=== PATIENT | female | born 1955 | race Caucasian/White ===

== ENCOUNTER 2024-02-22 12:09 | Emergency (ER) | payer MEDICARE ==
--- OUTSIDE RECORDS SUMMARY | 2024-02-22 12:13 | XMS REPORT | Continuity of Care Document ---
Author Name Unknown Address [address] [facility]. [address] thconnect Address [address] [facility]. 1 [address] [place] [address] Care Team Providers Care Electron Tube Assembler Name Role Phone Kurt Alexis Attending Clinician Unavailable Pelon Chew Attending Clinician Unavailable Juan Figueroa Attending Clinician Chacha Diamond Attending Clinician [phone] Leeann Attending Clinician Unavailable Mireille Andres Attending Clinician [phone] Krystyna Nelson MD Attending Clinician [phone] Leeann Admitting Clinician Unavailable Payers Payer Name Policy Type Policy Number Effective Date Expirati on Date Source [facility] (MEDICARE REPLACEMENT O) [id number] 2022 00:00:00 Problems Condition Name Condition Details Condition Category Status Onset Date Resolution Date Last Treatment Date Treating Clinician Comments Source Obesity (BMI 30-39.9) Obesity (BMI 30-39.9) Disease Active 03-14 00:00: 00 [facility] Slurred speech Slurred speech Disease Active 03-13 00:00: 00 [facility] Allergies, Adverse Reactions, Alerts Allergy Name Allergy Type Status Severity Reaction(s) Onset Date Inactive Date Treating Clinician Comments Source Iodine And Iodide Containi ng Products Drug Allergy Active Rash 04-10 00:00: 00 [facility] Penicill in Propensi ty to adverse reaction s Active Rash 2016-09 00:00: 00 [facility] Social History Social Habit Start Date Stop Date Quantity Comments Source Sex Assigned At [facility] Tobacco Comment 2019-03-13 00:00:00 2019-03-13 00:00:00 quit in her 20's [facility] Smoking Status Start Date Stop Date Source Former smoker 2019-04-10 00:00:00 2019-04-10 00:00:00 [facility] Medications Ordered Medication Name Filled Medication Name Start Date Stop Date Current Medication? Ordering Clinician Indication Dosage Frequency Signature (SIG) Comments Components Source ketorolac (TORADOL) injection 30 mg 04-11 03:45: 00 04-11 02:45 :00 No 30mg 30 mg, Slow IV Push, ONCE, 1 dose, Sat04/10/19 at 2245, JUSTIN
Fa culty member approving Restricted medication : TYRON RÍOS [facility] gabapentin (NEURONTIN) capsule 300 mg 04-11 03:25: 00 04-11 03:45 :00 No 300mg 300 mg, Oral, ONCE, 1 dose, Sat04/10/19 at 2230, JUSTIN [facility] iohexol (OMNIPAQUE 350 BULK-150 mL) injection 120 mL 04-11 02:15: 00 04-11 01:55 :00 No 120mL 120 mL, Intravenou s, ONCE, 1 dose, Sat04/10/19 at 2115, Routine [facility] diphenhydrA MINE (BENADRYL) injection 25 mg 04-11 01:45: 00 04-11 00:34 :00 No 25mg 25 mg, Slow IV Push, ONCE, 1 dose, Sat04/10/19 at 2045, STAT [facility] ondansetron (ZOFRAN-ODT ) disintegrat ing tablet 4 mg 04-11 00:45: 00 04-11 00:34 :00 No 4mg 4 mg, Oral, ONCE, 1 dose, Sat04/10/19 at 1945, Routine [facility] NaCl 0.9% (NS) bolus infusion 1,000 mL 04-10 23:45: 00 04-11 02:16 :00 No 1000mL at 999 mL/hr, 1,000 mL, IV Infusion, ONCE, 1 dose, Sat04/10/19 at 1845, JUSTIN [facility] gabapentin 300 mg capsule 04-10 00:00: 00 Yes [id number] 300mg Take 1 capsule by mouth at bedtime. [facility] aspirin 81 mg chewable tablet 03-15 00:00: 00 Yes [id number] 81mg Take 1 tablet by mouth daily. [facility] metoprolol tartrate 50 mg tablet 03-14 21:18: 08 Yes 50mg Take 50 mg by mouth 2 (two) times daily. [facility] losartan 25 mg tablet 03-14 00:00: 00 Yes [id number] 25mg Take 1 tablet by mouth daily. [facility] atorvastati n 20 mg tablet 03-14 00:00: 00 Yes [id number] 20mg Take 1 tablet by mouth at bedtime. [facility] Vital Signs Vital Name Observation Time Observation Value Comments S oureris Systolic blood pressure 2019-04-11 02:32:00 175 mm[Hg] [facility] Diastolic blood pressure 2019-04-11 02:32:00 92 mm[Hg] [facility] Heart rate 2019-04-11 02:32:00 74 /min [facility] Respiratory rate 2019-04-11 02:32:00 20 /min [facility] Oxygen saturation in Arterial blood by Pulse oximetry 2019-04-11 02:32:00 98 /min [facility] Body temperature 2019-04-10 22:57:00 36.67 Lucretia [facility] Body weight 2019-04-10 22:57:00 108.863 kg [facility] BMI 2019-04-10 22:57:00 39.94 kg/m2 [facility] Procedures Procedure Date / Time Performed Performing Clinician Source CT ABDOMEN PELVIS W CONTRAST 2019-04-11 02:03:00 Krystyna Nelson [facility] LIPASE 2019-04-10 23:46:00 Krystyna Nelson [facility] HEPATIC FUNCTION PANEL ([id number]) (ALB,T.PRO,BILI T,BU/BC,ALT,AST,ALK PHOS) 2019-04-10 23:46:00 Krystyna Nelson [facility] BASIC METABOLIC PANEL (NA, K, CL, CO2, GLUCOSE, BUN, CREATININE, CA) 2019-04-10 23:46:00 Krystyna Nelson [facility] CBC WITH DIFFERENTIAL 2019-04-10 23:46:00 Heather Nelson [facility] Encounters Start Date/Time End Date/Time Encounter Type Admission Type Attending [facility] Facility Care Department Encounter ID Source 2024-02-18 15:23:01 Outpatient Alexis, [facility] [id number] [facility] 2023-12-18 10:34:00 Outpatient Alexis, [facility] [id number] [facility] 2023-12-11 16:20:00 Outpatient Alexis, [facility] [id number] [facility] 2023-09-17 09:58:02 Outpatient Alexis, [facility] [id number] [facility] 2023-08-14 14:04:01 Outpatient Alexis, [facility] [id number] [facility] 2023-05-21 13:16:00 Outpatient Alexis, [facility] [id number] [facility] 2023-02-18 08:35:01 Outpatient Alexis, [facility] [id number] [facility] 2022-11-30 17:06:02 Outpatient Alexis, [facility] [id number] [facility] 2022-11-16 13:02:02 Outpatient Alexis, [facility] [id number] [facility] 2022-11-13 08:46:03 Outpatient Pelon Chew [facility] [id number] [facility] 2024-02-19 21:00:00 2024-02-19 22:00:00 SAMANTHA Visit Juan Figueroa [id number] CLACXEAYEF KANWAL [facility] 2022-05-24 18:00:00 2022-05-24 19:00:00 CAV Chacha Srinicaitlyn [id number] [facility] [place] 2022-05-08 00:00:00 2022-05-08 00:00:00 Outpatient Ogbechie_L [facility] [id number] [facility] 2022-05-08 00:00:00 2022-05-08 00:00:00 Outpatient Ogbechie_L [facility] [id number] [facility] 2022-05-08 00:00:00 2022-05-08 00:00:00 Outpatient Ogbechie_L [facility] [id number] [facility] 2022-03-23 07:01:00 2022-03-23 07:01:00 Outpatient [facility] [id number] [facility] 2021-12-20 05:00:00 2021-12-20 05:00:00 Outpatient [facility] [id number] [facility] 2019-04-10 17:58:22 2019-04-11 00:24:00 Emergency Mireille Martinez [facility] [id number] [facility] Results Test Description Test Time Test Comments Results Result Comments Source CT ABDOMEN PELVIS W CONTRAST 2019-04 04:37:[address] finding to explain patient's abdominal pain. IFara MD., have reviewed this study and agree with the abovereport.CT ABDOMEN PELVIS W CONTRAST HISTORY: 63 years-old; Female; Abd pain, acute, generalized COMPARISON: None. DOSE: CTDIvol: 27 mGy; DLP: 1530 mGy-cm TECHNIQUE AND FINDINGS: Contiguous axial imaging from the level of the lungbases through the pubic symphysis was performed after the uncomplicatedadministration of 120?cc of intravenous Omnipaque contrast. Coronal andsagittal reconstructions were obtained.?Auto mA and/or iterativereconstruction were used to reduce radiation dose. FINDINGS: LOWER THORAX: The lung bases are clear. No cardiomegaly. LIVER: Subcentimeter low attenuated focus in the liver segment 6 (3:48),likely represents hepatic cysts or hemangioma. Normal contour. GALLBLADDER AND BILIARY TREE: No intra or extrahepatic biliary ductaldilation. No gallbladder wall thickening. SPLEEN: Unremarkable. PANCREAS: No ductal dilation or masses. ADRENAL GLANDS: No adrenal mass. KIDNEYS: No Hydroureteronephrosis, stones, or masses. Homogeneous andsymmetrical enhancement. PERITONEUM AND RETROPERITONEUM: No free air or fluid collection. LYMPH NODES: No intra-abdominal or pelvic lymph node enlargement. GI TRACT: No dilation or bowel wall thickening. Appendix is normal. PELVIS/BLADDER: Bladder is fully distended with no wall thickening. VESSELS: Unremarkable. BONES AND SOFT TISSUES: No suspicious lytic or sclerotic bony lesions. [facility], Radiant Results Inft User - 04/10/2019 11:37 PM CDTCT ABDOMEN PELVIS W CONTRASTHISTORY: 63 years-old; Female; Abd pain, acute, generalized COMPARISON: None.DOSE: CTDIvol: 27 mGy; DLP: 1530 mGy-cmTECHNIQUE AND FINDINGS: Contiguous axial imaging from the level of the lungbases through the pubic symphysis was performed after the uncomplicatedadministration of 120 cc of intravenous Omnipaque contrast. Coronal andsagittal reconstructions were obtained. Auto mA and/or iterativereconstruction were used to reduce radiation dose.FINDINGS:LOWER THORAX: The lung bases are clear. No cardiomegaly.LIVER: Subcentimeter low attenuated focus in the liver segment 6 (3:48),likely represents hepatic cysts or hemangioma. Normal contour.GALLBLADDER AND BILIARY TREE: No intra or extrahepatic biliary ductaldilation. No gallbladder wall thickening.SPLEEN: Unremarkable.PANCREAS: No ductal dilation or masses.ADRENAL GLANDS: No adrenal mass.KIDNEYS: No Hydroureteronephrosis, stones, or masses. Homogeneous andsymmetrical enhancement.PERITONEUM AND RETROPERITONEUM: No free air or fluid collection.LYMPH NODES: No intra-abdominal or pelvic lymph node enlargement.GI TRACT: No dilation or bowel wall thickening. Appendix is normal.PELVIS/BLADDER: Bladder is fully distended with no wall thickening.VESSELS: Unremarkable.BONES AND SOFT TISSUES: No suspicious lytic or sclerotic bony lesions.IMPRESSIONNo CT finding to explain patient's abdominal pain.ISandra MD., have reviewed this study and agree with the abovereport. [facility] (ALB, T.PRO, BILI T, BU/BC, ALT, AST, ALK PHOS)2019-04-11 00:10:00* Test Item Value Reference Range Interpretation Comme nts TOTAL BILI (test code = 4501359019) 0.8 mg/dL 0.1-1.1 BILI UNCON (test code = 1746049511) 0.5 mg/dL 0.1-1.1 BILI CONJ (test code = 7271053334) 0.0 mg/dL 0-0.3 T PROTEIN (test code = 7544000587) 8.0 g/dL 6.3-8.2 ALBUMIN (test code = 7665248449) 4.3 g/dL 3.5-5 ALK PHOS (test code = 1236763555) 68 U/L 34-122 ALT(SGPT) (test code = 7029063322) 33 U/L 9-51 AST(SGOT) (test code = 3649605574) 41 U/L 13-40 H Lab Interpretation (test cod e = 70986-9) Abnormal [facility] [id number] 00:10:00* Test Item Value Reference Range Interpretation Comme nts LIPASE (test code = 4620598520) 67 U/L 0-220 Lab Interpretation (test cod e = 51088-9) Normal [facility] WITH [id number] 23:56:00* Test Item Value Reference Range Interpretation Comme nts WBC (test code = 6690-2) See_Comment [Automated [employer] ge] The system which generated this result transmitted reference range: 4.30 - 11.10 10*3/?L. The reference range was not used to interpret this result as normal/abnormal. RBC (test code = 789-8) See_Comment [Automated [employer]] The system which generated this result transmitted reference range: 3.93 - 5.25 10*6/?L. The reference range was not used to interpret this result as normal/abnormal. HGB (test code = 718-7) 14.5 g/dL 11.6-15 HCT (test code = 4544-3) 45.8 % 35.7-45.2 H MCV (test code = 787-2) 89.8 fL 80.6-95.5 MCH (test code = 785-6) 28.4 pg 25.9-32.8 MCHC (test code = 786-4) 31.7 g/dL 31.6-35.1 RDW-SD (test code = 13177-6) 43.7 fL 39-49.9 RDW-CV (test code = 788-0) 13.2 % 12-15.5 PLT (test code = 777-3) See_Comment [Automated [employer]] The system which generated this result transmitted reference range: 166 - 358 10*3/?L. The reference range was not used to interpret this result as normal/abnormal. MPV (test code = 31286-9) 9.5 fL 9.5-12.9 NRBC/100 WBC (test code = 9680760493) See_Comment [Automated [employer] ssage] The system which generated this result transmitted reference range: 0.0 - 10.0 /100 WBCs. The reference range was not used to interpret this result as normal/abnormal. NRBC x10^3 (test code = 2243911636) <0.01 See_Comment [Automated [employer]] The system which generated this result transmitted reference range: 10*3/?L. The reference range was not used to interpret this result as normal/abnormal. GRAN MAT (NEUT) % (test code = 770-8) 48.6 % IMM GRAN % (test code = 8171213084) 0.30 % LYMPH % (test code = 736-9) 36.5 % MONO % (test code = 5905-5) 8.4 % EOS % (test code = 713-8) 5.3 % BASO % (test code = 706-2) 0.9 % GRAN MAT x10^3(ANC) (test code = 3314260848) 3.65 10*3/uL 1.88-7.09 IMM GRAN x10^3 (test code = 0194495840) <0.03 0-0.06 LYMPH x10^3 (test code = 731-0) 2.74 10*3/uL 1.32-3.29 MONO x10^3 (test code = 742-7) 0.63 10*3/uL 0.33-0.92 EOS x10^3 (test code = 711-2) 0.40 10*3/uL 0.03-0.39 H BASO x10^3 (test code = 704-7) 0.07 10*3/uL 0.01-0.07 Lab Interpretation (test code = 56608-5) Abnormal [facility]
[2024-02-22 13:03] LABS: Absolute Basophils 0.1 K/uL (0-0.5); Absolute Eosinophils 0.3 K/uL (0-0.5); Absolute Lymphocytes (CBC) 2.7 K/uL (0.7-4.9); Absolute Monocytes 0.4 K/uL (0.1-1.3); Absolute Neutrophil 4.7 K/uL (1.8-8.0); Eosinophils % 4.2 % (0-4.4); Hemoglobin 14.5 g/dL (12.0-15.0); Lymphocytes % 32.3 % (15.3-44.8); MCH 29.7 pg (27.0-35.0); MCHC 32.8 g/dL (32.0-36.0); MCV 90.4 fL (80-100); MPV 8.2 fL (7.6-11.3); Monocytes % 5.2 % (3.3-12.3); Neutrophils % 57.3 % (41.7-73.7); Nucleated Red Blood Cells % 0.1 % (0-0); Platelets 327 thou/uL (152-406); RBC Red Blood Cell Count 4.87 M/uL (3.86-4.86); Red Cell Distribution Width 14.9 % (12.1-15.2)
[2024-02-22 13:06] LABS: PT Prothrombin Time 11.7 SECONDS (9.5-12.5); Protime INR 1.07
[2024-02-22 13:22] LABS: Anion Gap 9.5 mEq/L (5.0-15.0); Magnesium 2.5 mg/dL (1.6-2.4); Potassium 3.5 mEq/L (3.5-5.1); Troponin High Sensitivity 3.3 pg/mL (<58.9)
--- NOTE | 2024-02-22 13:42 | RAD REPORT ---
EXAM DESCRIPTION: CT - Head Brain Wo Cont - 02/22/2024 1:11 pm CLINICAL HISTORY: CVA/weakness COMPARISON: January 20, 2014 TECHNIQUE: Computed axial tomography of the head was obtained. IV contrast was not requested. All CT scans are performed using dose optimization technique as appropriate and may include automated exposure control or mA/KV adjustment according to patient size. FINDINGS: An intracranial bleed is not seen The ventricles are normal in caliber No extra-axial fluid collection is noted. Small low-density white matter right occipital/parietal lobe unchanged compatible with late subacute infarct. Fluid within the sinuses/ mastoids is not seen. IMPRESSION: No acute intracranial abnormality is seen If patient's symptoms persist MRI of the brain would be recommended
--- NOTE | 2024-02-22 14:03 | RAD REPORT ---
EXAM DESCRIPTION: Arin Single View02/22/2024 1:07 pm CLINICAL HISTORY: Weakness, CVA COMPARISON: January 2024 FINDINGS: The lungs appear clear of acute infiltrate. The heart is normal size IMPRESSION: No acute abnormalities displayed
[2024-02-22 16:12] LABS: Specific Gravity 1.022 (1.005-1.030); Sqamous Epithelial <5 /HPF (None Seen); Urine Bacteria Loaded /HPF (<20); Urine Bilirubin NEGATIVE (Negative); Urine Blood Negative (Negative); Urine Clarity Extremely Turbid (Clear); Urine Color Yellow (Yellow); Urine Culture Reflex Order REFLEXED; Urine Glucose NEGATIVE (Negative); Urine Ketones NEGATIVE (Negative); Urine Microscopic Reflex YN ORDER UMIC; Urine Mucus 1+ /HPF (None Seen); Urine Nitrite 2+ (Negative); Urine Protein TRACE (Negative); Urine RBC <5 /HPF (None Seen); Urine Urobilinogen Normal (Normal); Urine WBC 20-50 /HPF (<5)
[2024-02-22] MEDS ORDERED: NA CHLORIDE 0.9% 100 ML ONE (16:17)
[2024-02-22] MEDS ORDERED: CEFTRIAXONE 1000 MG/VIAL ONE (16:17)
--- NOTE | 2024-02-22 16:18 | ER ---
Nurse's Notes [facility] Name: Fe Antunez Age: 68 yrs Sex: Female : 1955 Arrival Date: 02/22/2024 Time: 12:09 Bed Treatment Private MD: Kurt Alexis Diagnosis: UTI/ Urinary tract infection, site not specified;Muscle weakness (generalized) Presentation: 02/21 12:47 Chief complaint: Patient states: "I've felt fatigued and general weakness for the past mb9 few days. It's not getting better.". Coronavirus screen: Vaccine status: Patient reports receiving the 2nd dose of the covid vaccine. Ebola Screen: No symptoms or risks identified at this time. Initial Sepsis Screen: Does the patient meet any 2 criteria? No. Patient's initial sepsis screen is negative. Does the patient have a suspected source of infection? No. Patient's initial sepsis screen is negative. Risk Assessment: Do you want to hurt yourself or someone else? Patient reports no desire to harm self or others. Onset of symptoms was 2023. 12:47 Acuity: LUIS FERNANDO 3 mb9 12:47 Method Of Arrival: Ambulatory mb9 Triage Assessment: 12:50 General: Appears in no apparent distress. Behavior is calm, cooperative. Pain: Denies mb9 pain. Neuro: Reports weakness. Historical: - Allergies: 12:48 Iodine; mb9 12:48 PENICILLINS; mb9 - Home Meds: 12:48 Plavix 75 mg oral tablet 1 tab [Active]; Metoprolol Tartrate Oral [Active]; losartan mb9 oral [Active]; Hydrochlorothiazide Oral [Active]; - PMHx: 12:48 diabetes mellitus; Hypercholesterolemia; Hypertensive disorder; Cerebrovascular mb9 accident; - PSHx: 12:48 None; mb9 - Immunization history:: Adult Immunizations up to date. - Infectious Disease History:: Denies. - Social history:: Smoking status: Patient denies any tobacco usage or history of. Screenin:14 [facility] ED Fall Risk Assessment (Adult) History of falling in the last 3 months, ss including since admission No falls in past 3 months (0 pts) Confusion or Disorientation No (0 pts) Intoxicated or Sedated No (0 pts) Impaired Gait No (0 pts) Mobility Assist Device Used No (0 pt) Altered Elimination No (0 pt) Score/Fall Risk Level 0 - 2 = Low Risk Oriented to surroundings, Maintained a safe environment. Abuse screen: Denies threats or abuse. Denies injuries from another. Nutritional screening: No deficits noted. Tuberculosis screening: Never had TB. Assessment: 15:37 Reassessment: awaiting for urine specimen. Pt states she would like to drink water ss before she attempts to void. BLAKE Moses notified. Water provided as requested. General: Appears in no apparent distress. comfortable, Behavior is calm, cooperative. General: Reports fatigue for 2-3 days. Pain: Denies pain. Neuro: Level of Consciousness is awake, alert, obeys commands, Oriented to person, place, time, situation. Respiratory: Airway is patent Respiratory effort is even, unlabored, Respiratory pattern is regular, symmetrical. GI: Patient currently denies diarrhea, nausea, vomiting. Derm: Skin is pink, warm \\T\\ dry. normal. Musculoskeletal: Range of motion: intact in all extremities. 16:14 Reassessment: results back, awaiting disposition. Vital Signs: 12:47 Resp 18; Temp 98; Weight 99.34 kg; Height 5 ft. 5 in. ; mb9 12:55 Pulse 83; Resp 18; Temp 96.7; Pulse Ox 100% on R/A; jr12 15:00 BP 114 / 62; Pulse 77; ss 12:47 Body Mass Index 36.44 (99.34 kg, 165.1 cm) mb9 NIH Stroke Scale Scores: 12:47 NIHSS Score: 0 [facility] ED Course: 12:12 Patient arrived in ED. mr 12:12 Kurt Alexis DO is Private Physician. mr 12:16 [facility] Churchill [facility] jh7 12:16 Boni Paris MD is Attending Physician. jh7 12:47 Arm band placed on. mb9 12:48 Triage completed. mb9 12:50 Initial lab(s) drawn, by mo, sent to lab. Inserted saline lock: 20 gauge in right mb9 antecubital area, using aseptic technique. 13:09 XRAY Chest (1 view) In Process Unspecified. EDMS 13:12 CT Head Brain wo Cont In Process Unspecified. EDMS 15:20 EKG done, by ED staff. hb 15:37 Sherri Mooney, RN is Primary Nurse. 16:14 Patient has correct armband on for positive identification. Bed in low position. Call ss light in reach. Side rails up X 1. 16:17 Kurt Alexis DO is Referral Physician. [facility] 16:33 No provider procedures requiring assistance completed. IV discontinued, intact, ss bleeding controlled, No redness/swelling at site. Pressure dressing applied. Administered Medications: 16:22 Drug: Rocephin IV 1 grams IV at 1 calculated rate once; Given slow IV push per pharmacy mb9 instructions Route: IV; Rate: 1 calculated rate; Site: right antecubital; 16:52 Follow up: Response: No adverse reaction; IV Status: Completed infusion ss Medication: 15:37 VIS not applicable for this client. Outcome: 16:17 Discharge ordered by MD. [facility] 16:52 Discharged to home ambulatory, with friend, 16:52 Condition: good 16:52 Discharge instructions given to patient, family, Instructed on discharge instructions, follow up and referral plans. medication usage, Demonstrated understanding of instructions, follow-up care, medications, Prescriptions given X 1, 16:53 Patient left the ED. NIH Stroke Scale - NIH Stroke Score Date: 02/22/2024 Time: 12:47 Total Score = 0 10. Dysarthria (speech clarity - read or repeat words) - 0(Normal) 11. Extinction and Inattention (visual/tactile/auditory/spatial/personal) - 0(No abnormality) 1a. Level of Consciousness (LOC) - 0(Alert) 1b. Level of Consciousness (LOC) (Month \\T\\ Age) - 0(Both) 1c. LOC Commands (Open \\T\\ Closes Eyes/Video Network Engineer) - 0(Both) 2. Best Gaze (Lateral Gaze Paresis) - 0(Normal) 3. Visual Field Loss - 0(No visual loss) 4. Facial Palsy - 0(Normal) 5a. Left Arm: Motor (10-second hold) - 0(No drift) 5b. Right Arm: Motor (10-second hold) - 0(No drift) 6a. Left Leg: Motor (5-second hold - always test supine) - 0(No drift) 6b. Right Leg: Motor (5-second hold - always test supine) - 0(No drift) 7. Limb Ataxia (finger/nose \\T\\ heel/howard - test with eyes open) - 0(Absent) 8. Sensory Loss (pinprick arms/legs/face) - 0(Normal) 9. Best Language: Aphasia (description/naming/reading) - 0(No aphasia) Initials: [email or web address] Signatures: Dispatcher [employer] EDRosa Greco, Reg Reg mr Sherri Mooney, RN RN Nuria Kellogg RN RN Aurelia Churchlil, THEATRICAL TROUPER THEATRICAL TROUPER 7 Rosa Mancini RN RN mb9 Judit Montalvo jr12 Corrections: (The following items were deleted from the chart) 13:01 12:55 BP 83 / 58; Pulse 83bpm; Resp 18bpm; Pulse Ox 100% RA; Temp 96.7F; jr12 jr12
--- NOTE | 2024-02-22 16:18 | EDPHYS ---
Physician Documentation [facility] Name: Fe Antunez Age: 68 yrs Sex: Female : 1955 Arrival Date: 02/22/2024 Time: 12:09 Bed Treatment Private MD: Reuben Counts Include 234 Beds At [facility] ED Physician Boni Paris HPI: 02/21 12:47 This 68 yrs old Female presents to ER via Ambulatory with complaints of Weakness. jh7 12:47 68-year-old female with a past medical history of stroke in December with left-sided jh7 deficits, hypertension, and diabetes presents to the ER for generalized weakness and fatigue since Saturday. The patient reports that she just finished physical therapy a week ago and that she is concerned that she has dropped a few things with her left hand over this past week. Reports that she has an appointment with Dr. Alamo on the . She is currently on Plavix. Denies any unilateral weakness, visual changes, speech changes, chest pain, shortness of breath, or any other symptoms at this time.. Historical: - Allergies: 12:48 Iodine; mb9 12:48 PENICILLINS; mb9 - Home Meds: 12:48 Plavix 75 mg oral tablet 1 tab [Active]; Metoprolol Tartrate Oral [Active]; losartan mb9 oral [Active]; Hydrochlorothiazide Oral [Active]; - PMHx: 12:48 diabetes mellitus; Hypercholesterolemia; Hypertensive disorder; Cerebrovascular mb9 accident; - PSHx: 12:48 None; mb9 - Immunization history:: Adult Immunizations up to date. - Infectious Disease History:: Denies. - Social history:: Smoking status: Patient denies any tobacco usage or history of. ROS: 12:47 Constitutional: Per HPI jh7 Exam: 12:47 Constitutional: This is a well developed, well nourished patient who is awake, alert, jh7 and in no acute distress. Head/Face: Normocephalic, atraumatic. Neck: Trachea midline, no thyromegaly or masses palpated, and no cervical lymphadenopathy. Supple, full range of motion without nuchal rigidity, or vertebral point tenderness. No Meningismus. Cardiovascular: Regular rate and rhythm with a normal S1 and S2. No gallops, murmurs, or rubs. Normal PMI, no JVD. No pulse deficits. Respiratory: Lungs have equal breath sounds bilaterally, clear to auscultation and percussion. No rales, rhonchi or wheezes noted. No increased work of breathing, no retractions or nasal flaring. Abdomen/GI: Soft, non-tender, with normal bowel sounds. No distension or tympany. No guarding or rebound. No evidence of tenderness throughout. Skin: Warm, dry with normal turgor. Normal color with no rashes, no lesions, and no evidence of cellulitis. MS/ Extremity: Pulses equal, no cyanosis. Neurovascular intact. Full, normal range of motion. 12:47 Neuro: Orientation: to person, place, time \T\ situation. Mentation: is normal, Memory: is normal, Cranial nerves: grossly normal, Cerebellar function: is grossly normal, Motor: is normal, Sensation: is normal, Vital Signs: 12:47 Resp 18; Temp 98; Weight 99.34 kg; Height 5 ft. 5 in. ; 9 12:55 Pulse 83; Resp 18; Temp 96.7; Pulse Ox 100% on R/A; jr12 15:00 BP 114 / 62; Pulse 77; ss 12:47 Body Mass Index 36.44 (99.34 kg, 165.1 cm) [facility] NIH Stroke Scale Scores: 12:47 NIHSS Score: 0 [facility] MDM: 12:16 Patient medically screened. [facility] 16:19 Data reviewed: vital signs, nurses notes, lab test result(s), EKG, radiologic studies, [facility] CT scan, plain films. Management of patient was discussed with the following: Hospitalist: Dr. Ash. I considered the following discharge prescriptions or medication management in the emergency department Medications were administered in the Emergency Department. See MAR. Independent interpretation of the following test(s) in the Emergency Department EKG: See my EKG interpretation above. Care significantly affected by the following chronic conditions: Diabetes, Hypertension. Counseling: I had a detailed discussion with the patient and/or guardian regarding the historical points, exam findings, and any diagnostic results supporting the discharge/admit diagnosis, the need for outpatient follow up, with PCP. 02/21 12:29 Order name: Basic Metabolic Panel; Complete Time: 14:13 [facility] 02/21 12:29 Order name: CBC with Diff; Complete Time: 14:13 [facility] 02/21 12:29 Order name: Magnesium; Complete Time: 14:13 [facility] 02/21 12:29 Order name: NT PRO-BNP; Complete Time: 14:13 [facility] 02/21 12:29 Order name: PT-INR; Complete Time: 14:13 [facility] 02/21 12:29 Order name: Troponin HS; Complete Time: 14:13 [facility] 02/21 12:29 Order name: Urinalysis w/ reflexes; Complete Time: 16:14 [facility] 02/21 16:16 Order name: Urine Culture [facility] 02/21 12:29 Order name: XRAY Chest (1 view); Complete Time: 14:13 [facility] 02/21 12:29 Order name: CT Head Brain wo Cont; Complete Time: 14:13 [facility] 02/21 12:29 Order name: EKG - Nurse/Tech; Complete Time: 15:20 [facility] 02/21 12:29 Order name: IV Saline Lock; Complete Time: 12:50 [facility] 02/21 12:29 Order name: Labs collected and sent; Complete Time: 12:50 [facility] 02/21 12:29 Order name: O2 Per Protocol; Complete Time: 15:20 [facility] 02/21 12:29 Order name: O2 Sat Monitoring; Complete Time: 15:20 [facility] EC:17 Rate is 74 beats/min. Rhythm is regular. QRS [place] is Normal. SC interval is normal at [facility] 202 msec. QRS interval is normal at 92 msec. QT interval is normal at 392 msec. No Q waves. T waves are Normal. Clinical impression: Sinus rhythm with left anterior fascicular block. Administered Medications: 16:22 Drug: Rocephin IV 1 grams IV at 1 calculated rate once; Given slow IV push per pharmacy mb9 instructions Route: IV; Rate: 1 calculated rate; Site: right antecubital; 16:52 Follow up: Response: No adverse reaction; IV Status: Completed infusion ss Disposition Summary: 02/22/24 16:17 Discharge Ordered Notes: Location: Home [facility] Problem: new [facility] Symptoms: are unchanged [facility] Condition: Stable [facility] Diagnosis - UTI/ Urinary tract infection, site not specified [facility] - Muscle weakness (generalized) [facility] Followup: [facility] - With: Kurt Alexis, DO - When: 2 - 3 days - Reason: Recheck today's complaints Discharge Instructions: - Discharge Summary Sheet [facility] - Urinary Tract Infection, Adult [facility] - Weakness [facility] Forms: - Medication Reconciliation Form [facility] - Antibiotic Education [facility] - Patient Portal Instructions [facility] - Leadership Thank You Letter [facility] Prescriptions: - cefdinir 300 mg Oral capsule - take 1 capsule ORAL route 2 times per day for 7 days; 14 capsule; Refills: 0, [facility] Product Selection Permitted NIH Stroke Scale - NIH Stroke Score Date: 02/22/2024 Time: 12:47 Total Score = 0 10. Dysarthria (speech clarity - read or repeat words) - 0(Normal) 11. Extinction and Inattention (visual/tactile/auditory/spatial/personal) - 0(No abnormality) 1a. Level of Consciousness (LOC) - 0(Alert) 1b. Level of Consciousness (LOC) (Month \T\ Age) - 0(Both) 1c. LOC Commands (Open \T\ Closes Eyes/It Business Analyst) - 0(Both) 2. Best Gaze (Lateral Gaze Paresis) - 0(Normal) 3. Visual Field Loss - 0(No visual loss) 4. Facial Palsy - 0(Normal) 5a. Left Arm: Motor (10-second hold) - 0(No drift) 5b. Right Arm: Motor (10-second hold) - 0(No drift) 6a. Left Leg: Motor (5-second hold - always test supine) - 0(No drift) 6b. Right Leg: Motor (5-second hold - always test supine) - 0(No drift) 7. Limb Ataxia (finger/nose \T\ heel/howard - test with eyes open) - 0(Absent) 8. Sensory Loss (pinprick arms/legs/face) - 0(Normal) 9. Best Language: Aphasia (description/naming/reading) - 0(No aphasia) Initials: [facility] Addendum: 02/25/2024 14:12 I was immediately available for consultation during this patient's visit. I did ec2 not personally see the patient or discuss the patient with the ELIO. . Signatures: Dispatcher [employer] Aurelia Tian FNP FNP 7 Rosa Mancini RN RN mb9 Boni Paris MD MD ec2 Sherri Mooney RN ss Corrections: (The following items were deleted from the chart) 02/21 12:30 12:30 Chest Single View+RAD.RAD.BRZ ordered. EDMS EDMS 12: 12:30 Head Brain Wo Cont+CT.RAD.BRZ ordered. EDMS EDMS
[2024-02-22 17:03] VITALS: BP 114/62; TEMP 96.7; O2SAT 100
--- NOTE | 2024-02-24 14:57 | EKG ---
Test Date: 2024-02-22 Test Time: 15:17:01 [employer] Machine Operator: CHRIS MEASUREMENT RESULTS: Intervals: Rate: 74 LA: 202 QRSD: 92 QT: 392 QTc: 435 [place]: P: 28 LA: 202 QRS: -59 T: 31 INTERPRETIVE STATEMENTS: Normal sinus rhythm Left anterior fascicular block Abnormal ECG Compared to ECG 01/21/2024 16:11:51 Left anterior fascicular block now present Ventricular premature complex(es) no longer present Left-axis deviation no longer present Myocardial infarct finding no longer present Electronically Signed On 02-24-24 14:52:05 CDT by Steve Gaitan
== END 2024-02-22 16:53 | disposition home or self-care (01) ==
LOC: ER 12:09
DX: N39.0 Urinary tract infection, site not specified (principal); M62.81 Muscle weakness (generalized); Z86.73 Personal history of transient ischemic attack (TIA), and cerebral infarction without residual deficits
CPT/HCPCS: 96365; 93005; 87088; 85025; 81001; 87086; 80048; 36415; 83735; 85610; 87077; 87186; 84484; 83880; 70450; 71045; 99284; J0696